=== PATIENT | male | born 1980 | race Caucasian/White ===

== ENCOUNTER → 2023-12-21 | Outpatient (CLI) | payer MEDICARE, OTHER ==
--- NOTE | 2023-12-25 00:15 | CT ---
EXAMINATION TYPE: CT abdomen pelvis wo con DATE OF EXAM: 12/21/2023 COMPARISON: None INDICATION: Renal stones DLP: 1049 mGycm, Automated exposure control for dose reduction was used. CONTRAST: 0 mL of Isovue 300. Study performed without Oral Contrast TECHNIQUE: Axial images were obtained from above the diaphragm to the pubic rami in the axial plane a t 5 mm thick sections. Reconstructed images are reviewed on the computer in the coronal plane. FINDINGS: Limited CT sections are obtained the lung bases. The lung bases are clear. CT ABDOMEN: Liver: Normal Spleen: Normal. There is a splenule adjacent anterior to the spleen Pancreas: Normal Adrenal glands: The adrenal glands are normal. Gallbladder: Punctate calcifications within the gallbladder Kidneys: No masses are evident. No hydronephrosis is present. No cysts are present. There are davin ral calcifications present bilaterally. Largest calcification at the superior pole right kidney measu res 0.5 cm. At the posterior lateral right mid kidney is a 0.4 cm calcification. Additional smaller c alcifications are present on the right. Largest calcification on the left is in the mid left kidney m easures 0.6 cm. At the inferior pole there is a 0.7 cm calcification. No hydroureter is evident. Aorta: Vascular calcification is within the aorta. Inferior vena cava: Normal. CT PELVIS: Loops of bowel within the abdomen and pelvis are normal. The study is without oral contrast. Appendix: Normal as visualized. Urinary bladder: Normal. Genitourinary structures: Prostate is prominent Osseous structures: No suspicious lytic or sclerotic lesions. IMPRESSION: 1. Multiple bilateral renal stones without obstruction.
== END | disposition home or self-care (01) ==
LOC: RADCTMAIN 11:22
PROVIDERS: ATTEND Family Medicine
DX: N20.0 Calculus of kidney (principal); Z87.442 Personal history of urinary calculi
CPT/HCPCS: 74176